=== PATIENT | male | born 1990 | race Hispanic/Latino ===

== ENCOUNTER 2021-09-03 10:13 | Emergency (ER) | payer OTHER ==
[~2021-09-03] VITALS: Ht 170.2 cm; Wt 91.0 kg
[2021-09-03 11:04] VITALS: BP 161/84
[2021-09-03] MEDS ORDERED: IBUPROFEN600 MG PO (12:21)
[2021-09-03] MEDS ORDERED: FLEXERIL5 M1 PO (12:21)
== END 2021-09-03 13:00 | disposition home or self-care (01) | DRG 563 ==
LOC: ED 10:13
DX: S39.012A Strain of muscle, fascia and tendon of lower back, initial encounter (principal); X50.0XXA Overexertion from strenuous movement or load, initial encounter; Y93.89 Activity, other specified; Y92.89 Other specified places as the place of occurrence of the external cause; Y99.0 Civilian activity done for income or pay

== ENCOUNTER 2021-11-10 11:32 | Emergency (ER) | payer OTHER ==
[~2021-11-10] VITALS: Ht 170.2 cm; Wt 91.0 kg
[~2021-11-10 11:32] MED LIST: FLEXERIL5 M1 PO; IBUPROFEN600 MG PO
[2021-11-10 14:13] VITALS: BP 138/92
[2021-11-10 14:15] VITALS: BP 135/95
[2021-11-10 14:30] VITALS: BP 129/86
[2021-11-10] MEDS ORDERED: CEPHALEXIN500 M1 PO (14:47)
[2021-11-10 15:35] VITALS: BP 129/86
== END 2021-11-10 15:50 | disposition home or self-care (01) | DRG 605 ==
LOC: ED 11:32
PROC: 0HQ1XZZ Repair Face Skin, External Approach (ICD-10-PCS; principal; 2021-11-10)
DX: S01.81XA Laceration without foreign body of other part of head, initial encounter (principal); S01.511A Laceration without foreign body of lip, initial encounter; W20.8XXA Other cause of strike by thrown, projected or falling object, initial encounter; Y93.89 Activity, other specified; Y92.89 Other specified places as the place of occurrence of the external cause; Y99.0 Civilian activity done for income or pay